=== PATIENT | female | born 1960 | race Caucasian/White ===

== ENCOUNTER 2018-09-28 05:40 | Inpatient (IN) ==
[2018-09-28] MEDS ORDERED: Metoprolol Tartrate 25 MG Tablet PO ONE (06:05)
[2018-09-28] MEDS ORDERED: Chlorhexidine Gluconate 2% 1 Pack (2 Cloths) TOPICAL ONE (06:05)
[2018-09-28] MEDS ORDERED: Protamine Sulfate Inj 50 MG/5 ML Vial ONE (06:27)
[2018-09-28] MEDS ORDERED: Gelatin Size 100 Topical Foam ONE (06:27)
[2018-09-28] MEDS ORDERED: Heparin 10,000 UNITS/10 ML Vial (for IV use) ONE (06:27)
[2018-09-28] MEDS ORDERED: Heparin/NS PF Inj 500 ML ONE (06:28)
[2018-09-28] MEDS ORDERED: Thrombin Topical Soln 20,000 UNIT Vial TOPICAL ONE (06:28)
[2018-09-28] MEDS ORDERED: ceFAZolin 2 GM Premix Inj 2 GM/50 ML PIGGYBACK IV.SIG ONE (06:29)
[2018-09-28] MEDS ORDERED: Sodium Chlor 0.9% Inj 500 ML IV.SIG SCH (07:00)
[2018-09-28] MEDS ORDERED: Lidocaine PF 1% Inj 5 ML Syringe OTHER ONE (07:31)
[2018-09-28] MEDS ORDERED: Sodium Chlor 0.9% Inj 500 ML IV.CONT ONE (07:31)
[2018-09-28] MEDS ORDERED: Normosol-R pH 7.4 Inj 1,000 ML IV.CONT ONE (07:31)
[2018-09-28] MEDS ORDERED: Glycopyrrolate Inj 1 MG/5 ML Syringe IV.PUSH ONE (07:31)
[2018-09-28] MEDS ORDERED: Neostigmine Inj 5 MG/5 ML Syringe IV.PUSH ONE (07:31)
[2018-09-28] MEDS ORDERED: Phenylephrine/NS 1000 MCG/10ML Syringe IV.PUSH ONE (07:31)
[2018-09-28] MEDS ORDERED: Bisacodyl 10 MG Supp RECTAL PRN (09:44)
[2018-09-28] MEDS ORDERED: Enoxaparin Inj 40 MG/0.4 ML Syringe SQ ONE (09:54)
--- NOTE | 2018-09-28 09:59 | P.OP ---
Preoperative Diagnosis: Right lower extremity critical limb ischemia with rest pain Postoperative Diagnosis: Right lower extremity critical limb ischemia with rest pain Date of procedure: 09/28/18 Procedure: 1. Right external iliac artery endarterectomy with pericardial patch angioplasty 2. Right common femoral artery endarterectomy with pericardial patch angioplasty 3. Right superficial femoral artery, profunda femoral artery endarterectomy with pericardial patch angioplasty [facility] Surgeon: Sriram Bhandari MD Estimated blood loss (mL): 20 Operation and Findings: Findings 1. Occlusion of the distal right external iliac artery and right common femoral artery and severely diseased right superficial femoral artery and profunda femoral artery. Performed right external iliac artery, common femoral artery, profunda femoral artery, superficial femoral artery endarterectomy pericardial patch angioplasty. 2. Patient has multiphasic pedal signals at the end of the procedure. Operation details Patient was taken to the operating room, laid supine on the OR table. After adequate sedation, the patient was prepped and draped in the standard sterile fashion. Timeout was called with all members and you are in agreement. A longitudinal incision was made in the right groin. Dissection was taken down through the subcutaneous tissues electrocautery. The distal external iliac artery, common femoral artery, superficial femoral artery, profunda femoral artery dissected and encircled Silastic loop. Patient was heparinized. Arteriotomy was created in the common femoral artery and extended cephalad to the external iliac artery and caudal to the superficial femoral artery. The endarterectomy was performed. The artery was repaired using a pericardial patch was cut at appropriate length and secured using a 6-0 Prolene suture in running fashion. Hemostasis achieved. The wound was closed in multiple layers of Vicryl suture followed by Monocryl suture. Sterile dressing and Brook wound VAC was applied. Patient tolerated the procedure well and was taken to recovery unit in stable condition.
[2018-09-28] MEDS ORDERED: Insulin NovoLOG Aspart Correctional Sugar Inj SQ SCH (10:00)
[2018-09-28] MEDS: Sod Chloride 0.9% Inj 1,000 ML IV.CONT SCH (10:28)
[2018-09-28] MEDS ORDERED: *morphine SULFATE 4 MG/ML PERIprocedure ONLY ONE ×2 (10:31→13:55)
[2018-09-28] MEDS ORDERED: Acyclovir 800 MG Tablet PO SCH (11:30)
[2018-09-28] MEDS ORDERED: Dextrose 50% in Water 50 ML Vial IV.PUSH PRN (11:59)
[2018-09-28] MEDS ORDERED: Gabapentin 300 MG Capsule PO SCH (13:00)
[2018-09-28] MEDS: buPROPion 150 MG XL 24 HR Tablet PO SCH (13:56)
[2018-09-28] MEDS: Docusate Sodium 100 MG Capsule PO SCH ×2 (13:56→18:09)
[2018-09-28] MEDS: Insulin NovoLOG Aspart Correctional Sugar Inj SQ SCH (16:45)
[2018-09-28] MEDS: Gabapentin 300 MG Capsule PO SCH (18:09)
[2018-09-28] MEDS: Calcium Carbonate 500 MG Tablet PO SCH (21:27)
[2018-09-28] MEDS: Famotidine 20 MG Tablet PO SCH (21:28)
[2018-09-28] MEDS: Furosemide 40 MG Tablet PO SCH (21:28)
[2018-09-28] MEDS: Senna/Docusate Sodium 8.6/50 MG Tablet PO SCH (21:28)
[2018-09-29] MEDS: Insulin NovoLOG Aspart Correctional Sugar Inj SQ SCH ×5 (03:17→21:12)
[2018-09-29 05:17] LABS: Hematocrit 41.3 % (35.0-46.0); Mean Corpuscular HGB Conc 33.9 % (32.0-36.0); Mean Corpuscular Hemoglobin 32.3 pg (27.0-34.0); Mean Corpuscular Volume 95.4 fL (80.0-100.0); Mean Platelet Volume 8.9 fL (7.0-11.0); Platelet Count 168 th/mm3 (150-450); Red Blood Count 4.33 mil/mm3 (4.00-5.30); Red Cell Distribution Width 16.1 % (11.6-17.2); White Blood Count 7.1 th/mm3 (4.0-11.0)
[2018-09-29 05:47] LABS: Anion Gap 9 meq/L (5-15); Blood Urea Nitrogen 8 mg/dL (7-18); Calcium 7.3 mg/dL (8.5-10.1); Carbon Dioxide 26.4 meq/L (21.0-32.0); Chloride 107 meq/L (98-107); Glomerular Filtration Rate Greater Than 89 mL/min (>89); Glucose,Random 109 mg/dL (74-106); Potassium 3.4 meq/L (3.5-5.1); Sodium 142 meq/L (136-145)
[2018-09-29 05:54] LABS: Albumin 2.7 g/dL (3.4-5.0); Calcium-Albumin Corrected 8.3 mg/dL (8.5-10.1)
[2018-09-29] MEDS: Sod Chloride 0.9% Inj 1,000 ML IV.CONT SCH ×4 (07:10→19:20)
--- NOTE | 2018-09-29 08:09 | P.PNVS ---
Subjective Subjective/Hospital Course: doing well complain of mild incisional pain Objective Vital Signs / I&O: Vital Signs 09/28/18 10:00 09/28/18 10:15 09/28/18 10:30 Temperature 97.6 F Pulse Rate 85 77 78 Respiratory Rate 20 16 16 Blood Pressure 167/80 H 153/75 H 138/72 Pulse Oximetry 99 99 99 09/28/18 10:45 09/28/18 11:00 09/28/18 11:17 Temperature 98.0 F Pulse Rate 76 74 72 Respiratory Rate 22 20 20 Blood Pressure 133/64 130/62 122/58 L Pulse Oximetry 100 100 100 09/28/18 11:57 09/28/18 12:55 09/28/18 13:58 Temperature Pulse Rate 68 75 80 Respiratory Rate 18 18 18 Blood Pressure 111/56 L 139/60 132/61 Pulse Oximetry 99 97 96 09/28/18 15:00 09/28/18 19:00 09/28/18 20:00 Temperature 97.9 F 98.5 F Pulse Rate 82 72 74 Respiratory Rate 18 18 Blood Pressure 140/63 91/55 L Pulse Oximetry 96 98 09/28/18 23:00 09/29/18 03:00 Temperature 98.9 F 98.7 F Pulse Rate 70 84 Respiratory Rate 18 18 Blood Pressure 123/58 L 155/74 H Pulse Oximetry 98 98 Intake & Output 09/28/18 09/29/18 09/29/18 18:59 06:59 18:59 Intake Total 2400 / 2400 240 / 240 1550 / 1550 Output Total 1750 / 1750 2650 / 2650 Balance 650 / 650 -2410 / -2410 1550 / 1550 Weight 58.7 kg Intake: IV 1550 / 1550 LR 1000 mL Inj 1,000 ML @ 30 1000 / 1000 mls/hr IV.SIG .Q24H [facility] Rx#: [id number] Oral 600 / 600 240 / 240 Anesthesia Amount 1800 / 1800 Output: Estimated Blood Loss 100 / 100 Urine Amount (Catheter) 1650 / 1650 2650 / 2650 Indwelling Urethral Catheter 1650 / 1650 2650 / 2650 Physical Exam: right groin CDI Palpable right DP pulse Laboratory Results - last 24 hr 09/28/18 09/28/18 09/28/18 10:07 14:09 16:10 WBC RBC Hgb Hct MCV MCH MCHC RDW Plt Count MPV Sodium Potassium Chloride Carbon Dioxide Anion Gap BUN Creatinine Estimated GFR POC Glucose 189 H 210 H 218 H Random Glucose Calcium Calcium Adj for Albumin Albumin 09/28/18 09/29/18 09/29/18 21:26 04:56 04:56 WBC 7.1 RBC 4.33 Hgb 14.0 Hct 41.3 MCV 95.4 MCH 32.3 MCHC 33.9 RDW 16.1 Plt Count 168 MPV 8.9 Sodium 142 Potassium 3.4 L Chloride 107 Carbon Dioxide 26.4 Anion Gap 9 BUN 8 Creatinine 0.58 Estimated GFR Greater than 89 POC Glucose 130 H Random Glucose 109 H Calcium 7.3 L* D Calcium Adj for Albumin 8.3 L Albumin 2.7 L 09/29/18 07:31 WBC RBC Hgb Hct MCV MCH MCHC RDW Plt Count MPV Sodium Potassium Chloride Carbon Dioxide Anion Gap BUN Creatinine Estimated GFR POC Glucose 118 H Random Glucose Calcium Calcium Adj for Albumin Albumin Assessment and Plan - Plan S/p femoral endarterectomy POD #1 DC [place] Diet as ethel out of bed with PT HL IVF
[2018-09-29] MEDS ORDERED: TIOTROPIUM INH SCH (09:00)
[2018-09-29] MEDS: Gabapentin 300 MG Capsule PO SCH ×3 (09:10→17:24)
[2018-09-29] MEDS: Docusate Sodium 100 MG Capsule PO SCH ×3 (09:11→17:24)
[2018-09-29] MEDS: Senna/Docusate Sodium 8.6/50 MG Tablet PO SCH ×2 (09:11→21:07)
[2018-09-29] MEDS: Calcium Carbonate 500 MG Tablet PO SCH ×2 (09:11→21:07)
[2018-09-29] MEDS: Famotidine 20 MG Tablet PO SCH ×2 (09:12→21:07)
[2018-09-29] MEDS: Furosemide 40 MG Tablet PO SCH ×2 (09:12→21:07)
[2018-09-29] MEDS: Levothyroxine 125 MCG Tablet PO SCH (09:13)
[2018-09-29] MEDS: buPROPion 150 MG XL 24 HR Tablet PO SCH (09:14)
[2018-09-29] MEDS: Acyclovir 800 MG Tablet PO SCH (09:14)
[2018-09-29] MEDS: Morphine Inj 4 MG/ML Vial IV.PUSH PRN ×3 (10:08→21:07)
[2018-09-30] MEDS: Morphine Inj 4 MG/ML Vial IV.PUSH PRN (03:59)
[2018-09-30] MEDS: Insulin NovoLOG Aspart Correctional Sugar Inj SQ SCH (08:40)
[2018-09-30] MEDS: Calcium Carbonate 500 MG Tablet PO SCH (08:44)
[2018-09-30] MEDS: Gabapentin 300 MG Capsule PO SCH (08:44)
[2018-09-30] MEDS: Furosemide 40 MG Tablet PO SCH (08:44)
[2018-09-30] MEDS: Docusate Sodium 100 MG Capsule PO SCH (08:45)
[2018-09-30] MEDS: Famotidine 20 MG Tablet PO SCH (08:45)
[2018-09-30] MEDS: Levothyroxine 125 MCG Tablet PO SCH (08:45)
[2018-09-30] MEDS: Senna/Docusate Sodium 8.6/50 MG Tablet PO SCH (08:45)
[2018-09-30] MEDS: Acyclovir 800 MG Tablet PO SCH (08:46)
[2018-09-30] MEDS: buPROPion 150 MG XL 24 HR Tablet PO SCH (08:47)
--- NOTE | 2018-09-30 09:09 | P.PNVS ---
Subjective Subjective/Hospital Course: doing well Objective Vital Signs / I&O: Vital Signs 09/29/18 09:09 09/29/18 09:41 09/29/18 10:10 Temperature Pulse Rate 77 Respiratory Rate 18 18 Blood Pressure Pulse Oximetry 09/29/18 11:00 09/29/18 12:00 09/29/18 12:55 Temperature 98.6 F Pulse Rate 75 76 Respiratory Rate 18 18 Blood Pressure 135/65 Pulse Oximetry 98 09/29/18 12:57 09/29/18 14:00 09/29/18 15:00 Temperature 97.7 F Pulse Rate 78 73 82 Respiratory Rate 18 Blood Pressure 155/76 H Pulse Oximetry 99 09/29/18 16:00 09/29/18 17:00 09/29/18 17:14 Temperature Pulse Rate 90 85 Respiratory Rate 18 Blood Pressure Pulse Oximetry 09/29/18 18:25 09/29/18 19:00 09/29/18 20:00 Temperature 98.3 F Pulse Rate 90 86 Respiratory Rate 18 18 Blood Pressure 143/67 H Pulse Oximetry 98 09/29/18 21:00 09/29/18 22:00 09/29/18 22:08 Temperature Pulse Rate 83 84 Respiratory Rate 19 Blood Pressure Pulse Oximetry 09/29/18 23:00 09/30/18 00:00 09/30/18 01:00 Temperature 98.4 F Pulse Rate 81 83 80 Respiratory Rate 17 Blood Pressure 128/64 Pulse Oximetry 99 09/30/18 02:00 09/30/18 03:00 09/30/18 04:00 Temperature 98.5 F Pulse Rate 81 80 80 Respiratory Rate 18 Blood Pressure 147/71 H Pulse Oximetry 98 09/30/18 04:35 09/30/18 05:32 09/30/18 07:00 Temperature 98.3 F Pulse Rate 81 66 92 H Respiratory Rate 18 Blood Pressure 110/59 L Pulse Oximetry 98 Intake & Output 09/29/18 09/30/18 09/30/18 18:59 06:59 18:59 Intake Total 2775 / 2775 1000 / 1000 Balance 2775 / 2775 1000 / 1000 Intake: IV 1550 / 1550 1000 / 1000 NS Inj 1,000 ML @ 100 mls/hr IV 1000 / 1000 .CONT .Q10H [facility] Rx#:[id number] LR 1000 mL Inj 1,000 ML @ 30 1000 / 1000 mls/hr IV.SIG .Q24H [facility] Rx#: [id number] Oral 1225 / 1225 Other: # Voids 6 Date of Last Bowel Movement 09/29/18 # Bowel Movements 0 Physical Exam: Right groin clean dry intact +2 palpable right DP pulse Laboratory Results - last 24 hr 09/29/18 09/29/18 12:08 21:03 POC Glucose 137 H 353 H Assessment and Plan - Plan S/p femoral endarterectomy POD #1 Doing well Ambulating without any difficulties Pain is well controlled We will discharge home today. Follow-up in the office on Thursday for wound VAC removal
--- NOTE | 2018-09-30 09:12 | P.DS ---
Discharge Summary - Admission Date 09/28/18 05:40 - Admission Diagnosis (1) Femoral artery occlusion, right - Discharge Date 09/30/18 - Discharge Diagnosis (1) Femoral artery occlusion, right Status: Acute - Summary Brief History from admission: 58-year-old female who presents with right common femoral artery occlusion after heart catheterization. The patient was admitted to the hospital for right common femoral artery endarterectomy. Procedure: Right common femoral artery endarterectomy Significant Findings: Abnormal Lab Results 09/29/18 09/29/18 12:08 21:03 POC Glucose 137 H 353 H Hospital Course: The patient was taken to the operating room on admission day. The procedure underwent successfully. Postoperatively she was tolerating diet, ambulating, her pain was well controlled. The patient has home health and outpatient PT scheduled. She was discharged home in stable condition. She instructed to follow-up with me in the office on Thursday for wound VAC removal - Discharge Instructions Any questions or concerns: Call [facility] at [facility] [phone] Discharge Plan - Discharge Order Discharge Orders: Discharge Order (Routine); Ordered 09/30/18 Ordered By: Sriram Bhandari - Physicians Team Primary Care Provider: Pedro Milner Attending Provider: Sriram Bhandari - Rxs /Orders / Referrals /Forms Prescriptions: No Action acyclovir 400 mg Tablet 800 mg PO DAILY albuterol sulfate [Proventil HFA] 90 mcg/actuation Hfa Aerosol Inhaler 2 puff INHALATION Q4-6H PRN (Reason: copd) aspirin [Aspir-81] 81 mg Tablet,Delayed Release (Dr/Ec) 81 mg PO DAILY bupropion HCl 150 mg Tablet Extended Release 24 Hr 150 mg PO QAM calcium carbonate [Calcium 600] 600 mg calcium (1,500 mg) Tablet 600 mg PO BID carvedilol 3.125 mg Tablet 0.5 tab PO BID docusate sodium [Stool Softener] 100 mg Capsule 2 tab PO TID doxycycline hyclate 100 mg Capsule 100 mg PO BID duloxetine 30 mg Capsule,Delayed Release(Dr/Ec) 30 mg PO TID ergocalciferol (vitamin D2) [Vitamin D2] 50,000 unit Capsule 50,000 unit PO QWEEK ferrous sulfate [iron] 325 mg (65 mg iron) Tablet 325 mg PO BID furosemide 40 mg Tablet 40 mg PO BID gabapentin 100 mg Capsule 1,500 mg PO TID insulin aspart U-100 [Novolog U-100 Insulin aspart] 100 unit/mL Solution 1 sliding scale dose SUBCUT UD levothyroxine [Synthroid] 125 mcg Tablet 125 mcg PO DAILY morphine 60 mg Capsule, Er Multiphase 24 Hr 60 mg PO BID oxycodone-acetaminophen 10-325 mg Tablet 1 tab PO TID PRN (Reason: Pain) pravastatin 40 mg Tablet 40 mg PO HS Qty: 30 RF: 0 sacubitril-valsartan [Entresto] 24-26 mg Tablet 1 tab PO BID ticagrelor [Brilinta] 90 mg Tablet 90 mg PO BID tiotropium bromide [Spiriva Respimat] 1.25 mcg/actuation Mist 2 puff INHALATION DAILY zolpidem 10 mg Tablet 1 tab PO HS
== END 2018-09-30 10:22 | disposition home or self-care (01) | DRG 271 ==
LOC: HSDI 05:40 → HCPC 16:28
PROVIDERS: ADMIT Surgery; ATTEND Surgery
CPT/HCPCS: 36415; 71020; 71046; 80048; 82040; 82948; 82962; 85027; 86850; 86900; 86901; 93005; 94664; 97110; 97116; 97162; J0690; J1100; J1644; J1650; J1815; J2270; J2370; J2405; J2704; J2710; J2720; J3010; J7030; J7040; J7120

== ENCOUNTER 2018-10-01 16:44 | Inpatient (IN) ==
[2018-10-01] MEDS ORDERED: Sod Chloride 0.9% Inj 1,000 ML IV.SIG ONE (18:18)
--- NOTE | 2018-10-01 18:23 | ED ---
HPI General Chief complaint: Recheck/Abnormal Lab/Rx Stated complaint: low BP complaint Time Seen by Provider: 10/01/18 18:08 Source: patient Mode of arrival: ambulatory Limitations: no limitations History of Present Illness HPI narrative: 58-year-old female with history of IDDM, CAD s/p stent placement 3 weeks ago, presents to the emergency department for evaluation of low blood pressure that has been persistent "all day". Her assist with a history and states that her blood pressure was as low as 58/38 and at that time, patient was groggy and agitated. She states she has not had any medication changes to include blood pressure pain medication. She states she takes oxycodone 10 mg 3 times a day for chronic low back pain and again this is unchanged. She states that she was discharged yesterday after a femoral endarterectomy that was performed for September 28. She denies any complications or excessive pain related to this procedure. She states her blood pressure has been persistently in the 90s systolic all day. Denies fevers, chills, chest pain, shortness of breath, abdominal pain. Denies history of CHF. She has no other complaints today. Related Data Home Medications Medication Instructions Recorded Confirmed aspirin [Aspir-81] 81 mg PO DAILY 08/16/18 10/01/18 calcium carbonate [Calcium 600] 600 mg PO BID 08/16/18 10/01/18 docusate sodium [Stool Softener] 2 tab PO TID 08/16/18 10/01/18 duloxetine 30 mg PO TID 08/16/18 10/01/18 ergocalciferol (vitamin D2) 50,000 unit PO QWEEK 08/16/18 10/01/18 [Vitamin D2] ferrous sulfate [iron] 325 mg PO BID 08/16/18 10/01/18 furosemide 40 mg PO BID 08/16/18 10/01/18 levothyroxine [Synthroid] 125 mcg PO DAILY 08/16/18 10/01/18 morphine 60 mg PO BID 08/16/18 10/01/18 oxycodone-acetaminophen 1 tab PO TID PRN 08/16/18 10/01/18 sacubitril-valsartan [Entresto] 1 tab PO BID 08/16/18 10/01/18 acyclovir 800 mg PO DAILY 09/27/18 10/01/18 albuterol sulfate [Proventil HFA] 2 puff INHALATION Q4-6H PRN 09/27/18 10/01/18 bupropion HCl 150 mg PO QAM 09/27/18 10/01/18 carvedilol 0.5 tab PO BID 09/27/18 10/01/18 doxycycline hyclate 100 mg PO BID 09/27/18 10/01/18 gabapentin 1,500 mg PO TID 09/27/18 10/01/18 ticagrelor [Brilinta] 90 mg PO BID 09/27/18 10/01/18 tiotropium bromide [Spiriva 2 puff INHALATION DAILY 09/27/18 10/01/18 Respimat] zolpidem 1 tab PO HS 09/27/18 10/01/18 Previous Rx's Medication Instructions Recorded pravastatin 40 mg PO HS #30 tab 08/21/18 oxycodone-acetaminophen [Percocet] 1 tab PO Q4HR #40 tab 09/30/18 Allergies Allergy/AdvReac Type Severity Reaction Status Date / Time trazodone Allergy Severe Hives Verified 10/01/18 21:22 Review of Systems ROS: all other systems reviewed are negative [facility] Social History Social History Substance History: No History of Abuse Second Hand Smoke Exposure: Yes Smoking Status: Current every day smoker Tobacco Type: Cigarettes How Often Do You Have a Drink Containing Alcohol: Never Recent Travel in [facility] within the Last 8 Weeks: No Recent Out of Country Travel within the Last 8 Weeks: No Exam Narrative Exam Narrative: GENERAL: WD, WN in NAD SKIN: Focused skin assessment warm/dry. HEAD: Atraumatic. Normocephalic. EYES: Pupils equal and round, 2mm. No scleral icterus. No injection or drainage. ENT: No nasal bleeding or discharge. Mucous membranes pink and moist. No tonsillar hypertrophy or exudate. NECK: Trachea midline. No JVD. No meningismus. No midline tenderness. CARDIOVASCULAR: Regular rate and rhythm. No murmur appreciated. RESPIRATORY: No accessory muscle use. Clear to auscultation. Breath sounds equal bilaterally. GASTROINTESTINAL: Abdomen soft, non-tender, nondistended. No CVAT. right groin- wound dressing in place without surrounding erythema, discharge, or tenderness to palpation. MUSCULOSKELETAL: No obvious deformities. No clubbing. No cyanosis. No edema. No tenderness to palpation of the calves. Sensation intact to bilateral lower extremities. NEUROLOGICAL: Awake and alert. No obvious cranial nerve deficits. Motor grossly within normal limits. Normal speech. PSYCHIATRIC: Appropriate mood and affect; insight and judgment normal. Course Initial Documented Vital Signs Temperature 98.2 F 10/01/18 16:46 Pulse Rate 78 10/01/18 16:46 Respiratory Rate 15 10/01/18 16:46 Blood Pressure 91/53 L 10/01/18 16:46 Pulse Oximetry 98 10/01/18 16:46 Last Documented Vital Signs Temperature 98.2 F 10/01/18 16:46 Pulse Rate 76 10/01/18 19:46 Respiratory Rate 16 10/01/18 19:46 Blood Pressure 126/52 L 10/01/18 19:46 Pulse Oximetry 98 10/01/18 19:46 Medical Decision Making MDM Narrative Medical decision making narrative: 58-year-old female presents to the emergency department for evaluation of low blood pressure that was noted today. She states that she checked her blood pressure because she was feeling groggy and agitated. They report her blood pressure 58/38 at home associated with feeling "drained". She denies fever, chills, chest pain, shortness of breath. She is due to follow-up with her vascular specialist on Thursday for wound check. During the course of the patient's emergency department visit, the patient's history, examination, and differential diagnosis were reviewed with the patient. The patient was placed on a cardiac specialist with oximetry and frequent blood pressure monitoring. The patient had an IV access obtained and blood work sent for analysis. Initial BP with systolic of the 90s. Initiated 1L NS with some improvement of her BP to 119 systolic. Lactic acid level elevated at 2.5. I suspected this is related to her recent surgery and current wound status. Note that her woundvac is patent and without obvious erythema or drainage. I have low suspicion of sepsis or infectious process causing her symptoms. Labs are notable for WBC 6.4, H/H 13.5/40.0, Sodium 131, BUN/Cr 30/1.98, BGL 407 , urinalysis with glucosuria, no evidence of UTI. Troponin <0.02, beta hydroxybutyrate 0.12 EKG shows sinus rhythm rate 76 without STEMI changes. Reviewed previous from . Similar tracing. I had a discussion with the family regarding the findings on today's labs. They were rather insistent upon being discharged home but agreed to stay for further evaluation. I spoke with Dr. Joiner who agreed to the admission. Medical Screen Exam Complete: Yes Emergency Medical Condition: Yes Differential Diagnosis Differential Diagnosis: Symptomatic hypotension, sepsis, medication noncompliance, medication overuse Medical Records Medical records reviewed: Yes I reviewed the patient's medical records. Lab Data Lab results reviewed: Yes I reviewed the patient's lab results. Result diagrams: 10/01/18 18:25 10/01/18 18:25 Lab Results 10/01/18 10/01/18 10/01/18 Range/Units 18:25 18:25 18:25 WBC 6.4 (4.0-11.0) th/mm3 RBC 4.15 (4.00-5.30) mil/mm3 Hgb 13.5 (11.6-15.3) gm/dL Hct 40.0 (35.0-46.0) % MCV 96.4 (80.0-100.0) fL MCH 32.5 (27.0-34.0) pg MCHC 33.7 (32.0-36.0) % RDW 15.8 (11.6-17.2) % Plt Count 180 (150-450) th/mm3 MPV 9.4 (7.0-11.0) fL Neut % (Auto) 67.5 (16.0-70.0) % Lymph % (Auto) 18.1 (9.0-44.0) % [place] % (Auto) 8.4 H (0.0-8.0) % Eos % (Auto) 4.8 H (0.0-4.0) % Baso % (Auto) 1.2 (0.0-2.0) % Neut # (Auto) 4.3 (1.8-7.7) th/mm3 Lymph # (Auto) 1.2 (1.0-4.8) th/mm3 [place] # (Auto) 0.5 (0.0-0.9) th/mm3 Eos # (Auto) 0.3 (0.0-0.4) th/mm3 Baso # (Auto) 0.1 (0.0-0.2) th/mm3 WBC Differential . Differential Comment Auto diff final PT 9.5 L (9.8-11.6) sec INR 0.9 Ratio APTT 23.8 (23.4-31.7) sec Sodium 131 L (136-145) meq/L Potassium 4.1 (3.5-5.1) meq/L Chloride 95 L (98-107) meq/L Carbon Dioxide 27.5 (21.0-32.0) meq/L Anion Gap 9 (5-15) meq/L BUN 30 H (7-18) mg/dL Creatinine 1.98 H (0.50-1.00) mg/dL Estimated GFR 26 L (>89) mL/min Random Glucose 407 H (74-106) mg/dL Lactic Acid (0.4-2.0) mmol/L Calcium 8.6 (8.5-10.1) mg/dL Magnesium 2.3 (1.5-2.5) mg/dL Total Bilirubin 0.5 (0.2-1.0) mg/dL AST 15 (15-37) U/L ALT 11 (10-53) U/L Alkaline Phosphatase 137 H (45-117) U/L Troponin I Less than 0.02 L (0.02-0.05) ng/mL Total Protein 6.5 (6.4-8.2) g/dL Albumin 2.9 L (3.4-5.0) g/dL Beta-Hydroxybutyric Acd (0.00-0.39) mmol/L Urine Color (Yellw/Straw) Urine Clarity (Clear) Urine pH (5.0-8.5) Ur Specific [place] (1.002-1.035) Urine Protein (Neg-Trace) mg/dL Urine Glucose (UA) (Negative) mg/dL Urine Ketones (Negative) mg/dL Urine Occult Blood (Negative) Urine Nitrate (Negative) Urine Bilirubin (Negative) Urine Urobilinogen (Less than 2) mg/dL Ur Leukocyte Esterase (Negative) Urine WBC (0-5) /hpf Ur Squamous Epith Cells (0-5) /hpf Hyaline Casts (0-3) /lpf Urine Yeast (None) /hpf Micro UA Comment Ur Microscopic Review Urine Culture Comments 10/01/18 10/01/18 10/01/18 Range/Units 18:25 18:25 19:38 WBC (4.0-11.0) th/mm3 RBC (4.00-5.30) mil/mm3 Hgb (11.6-15.3) gm/dL Hct (35.0-46.0) % MCV (80.0-100.0) fL MCH (27.0-34.0) pg MCHC (32.0-36.0) % RDW (11.6-17.2) % Plt Count (150-450) th/mm3 MPV (7.0-11.0) fL Neut % (Auto) (16.0-70.0) % Lymph % (Auto) (9.0-44.0) % [place] % (Auto) (0.0-8.0) % Eos % (Auto) (0.0-4.0) % Baso % (Auto) (0.0-2.0) % Neut # (Auto) (1.8-7.7) th/mm3 Lymph # (Auto) (1.0-4.8) th/mm3 [place] # (Auto) (0.0-0.9) th/mm3 Eos # (Auto) (0.0-0.4) th/mm3 Baso # (Auto) (0.0-0.2) th/mm3 WBC Differential Differential Comment PT (9.8-11.6) sec INR Ratio APTT (23.4-31.7) sec Sodium (136-145) meq/L Potassium (3.5-5.1) meq/L Chloride (98-107) meq/L Carbon Dioxide (21.0-32.0) meq/L Anion Gap (5-15) meq/L BUN (7-18) mg/dL Creatinine (0.50-1.00) mg/dL Estimated GFR (>89) mL/min Random Glucose (74-106) mg/dL Lactic Acid 2.5 H (0.4-2.0) mmol/L Calcium (8.5-10.1) mg/dL Magnesium (1.5-2.5) mg/dL Total Bilirubin (0.2-1.0) mg/dL AST (15-37) U/L ALT (10-53) U/L Alkaline Phosphatase (45-117) U/L Troponin I (0.02-0.05) ng/mL Total Protein (6.4-8.2) g/dL Albumin (3.4-5.0) g/dL Beta-Hydroxybutyric Acd 0.12 (0.00-0.39) mmol/L Urine Color Yellow (Yellw/Straw) Urine Clarity Hazy H (Clear) Urine pH 5.0 (5.0-8.5) Ur Specific [place] 1.023 (1.002-1.035) Urine Protein Negative (Neg-Trace) mg/dL Urine Glucose (UA) 500 or greater H (Negative) mg/dL Urine Ketones 20 (Negative) mg/dL Urine Occult Blood Negative (Negative) Urine Nitrate Negative (Negative) Urine Bilirubin Negative (Negative) Urine Urobilinogen Less than 2 (Less than 2) mg/dL Ur Leukocyte Esterase Negative (Negative) Urine WBC 1 (0-5) /hpf Ur Squamous Epith Cells 2 (0-5) /hpf Hyaline Casts 12 (0-3) /lpf Urine Yeast Few H (None) /hpf Micro UA Comment Culture not ind Ur Microscopic Review Not Reportable Urine Culture Comments Culture not ind Imaging Data Radiologist's impression: Chest X-Ray 10/01/18 18:18 CONCLUSION: Mild parenchymal consolidation of both bases. Discharge Plan Discharge Disposition Patient Disposition: ED Admit(ED Internal Use Only) Discharge Condition Condition: Stable Discharge Order Discharge Orders: ED Use Only Admit Order (Routine); Ordered 10/01/18 Ordered By: Bailee Gutierrez Discharge Details Diagnosis: Symptomatic hypotension, JAROD (acute kidney injury), Acute hyperglycemia, Elevated lactic acid level Physicians Team ED Provider: [facility] ED Midlevel Provider: Bailee Gutierrez Primary Care Provider: UNKNOWN, Attending Provider: Tara Joiner Status ED Status: Admitted Patient
[2018-10-01 18:53] LABS: Baso # (Auto) 0.1 th/mm3 (0.0-0.2); Baso % (Auto) 1.2 % (0.0-2.0); Eos # (Auto) 0.3 th/mm3 (0.0-0.4); Eos % (Auto) 4.8 % (0.0-4.0); Hemoglobin 13.5 gm/dL (11.6-15.3); Lymph # (Auto) 1.2 th/mm3 (1.0-4.8); Lymph % (Auto) 18.1 % (9.0-44.0); Mean Corpuscular HGB Conc 33.7 % (32.0-36.0); Mean Corpuscular Hemoglobin 32.5 pg (27.0-34.0); Mean Corpuscular Volume 96.4 fL (80.0-100.0); Mean Platelet Volume 9.4 fL (7.0-11.0); Mono # (Auto) 0.5 th/mm3 (0.0-0.9); Mono % (Auto) 8.4 % (0.0-8.0); Neut # (Auto) 4.3 th/mm3 (1.8-7.7); Neut % (Auto) 67.5 % (16.0-70.0); Platelet Count 180 th/mm3 (150-450); Red Blood Count 4.15 mil/mm3 (4.00-5.30); Red Cell Distribution Width 15.8 % (11.6-17.2); White Blood Count 6.4 th/mm3 (4.0-11.0)
--- NOTE | 2018-10-01 18:59 | XR ---
EXAM DATE: 10/01/2018 6:36 PM EST AGE/SEX: 58 years / Female INDICATIONS: Cardiac disease. Possible low blood pressure. CLINICAL DATA: This is the patient's initial encounter. Patient reports that signs and symptoms have been present for 1 day and indicates a pain score of 0/10. MEDICAL/SURGICAL HISTORY: . Diabetes. . Carotid stent. Back surgery COMPAR[place]: [facility] [place] 2[place]&LAT, 09/27/2018. . FINDINGS: Mild infiltrate again seen of both lung bases, not significantly changed. No pleural effusion demonst rated. No pneumothorax. Heart size stable, within normal limits. Thoracolumbar fusion changes are again noted. CONCLUSION: Mild parenchymal consolidation of both bases. Electronically signed by: Tejinder Hernández MD Board Certified Radiologist 10/01/2018 6:57 PM EST
[2018-10-01 19:01] LABS: Activated Partial Thrombo Time 23.8 sec (23.4-31.7); INR 0.9 Ratio; Prothrombin Time 9.5 sec (9.8-11.6)
[2018-10-01 19:15] LABS: Alanine Aminotransferase 11 U/L (10-53); Albumin 2.9 g/dL (3.4-5.0); Anion Gap 9 meq/L (5-15); Aspartate Aminotransferase 15 U/L (15-37); Blood Urea Nitrogen 30 mg/dL (7-18); Calcium 8.6 mg/dL (8.5-10.1); Carbon Dioxide 27.5 meq/L (21.0-32.0); Chloride 95 meq/L (98-107); Glomerular Filtration Rate 26 mL/min (>89); Glucose,Random 407 mg/dL (74-106); Magnesium 2.3 mg/dL (1.5-2.5); Potassium 4.1 meq/L (3.5-5.1); Sodium 131 meq/L (136-145)
[2018-10-01 19:20] LABS: Alkaline Phosphatase 137 U/L (45-117); Total Protein 6.5 g/dL (6.4-8.2)
[2018-10-01 20:14] LABS: Bilirubin,Urine Negative (Negative); Clarity,Urine Hazy (Clear); Color,Urine Yellow (Yellw/Straw); Glucose,Urine (UA) 500 or Greater mg/dL (Negative); Hyaline Casts,Urine 12 /lpf (0-3); Leukocyte Esterase,Urine Negative (Negative); Nitrite,Urine Negative (Negative); Specific Gravity,Urine 1.023 (1.002-1.035); Squamous Epithelial Cell,Urine 2 /hpf (0-5)
[2018-10-01] MEDS ORDERED: Bisacodyl 10 MG Supp RECTAL PRN (21:13)
[2018-10-01] MEDS ORDERED: Acetaminophen 325 MG Tablet PO PRN (21:13)
[2018-10-01] MEDS ORDERED: Dextrose 50% in Water 50 ML Vial IV.PUSH PRN (21:20)
[2018-10-01] MEDS: Sod Chloride 0.9% Inj 1,000 ML IV.CONT SCH (21:27)
[2018-10-01] MEDS ORDERED: Azithromycin Inj 500 MG in Sodium Chlor 0.9% Inj 250 ML IV.SIG SCH (22:00)
[2018-10-01] MEDS ORDERED: Tiotropium Bromide [Spiriva Respimat] 2 PUFF INH SCH (22:00)
--- NOTE | 2018-10-01 23:12 | P.HPIM ---
History of Present Illness Primary Care Physician: UNKNOWN History of Present Illness: This is a 58-year-old female with PMH of HTN, Hyperlipidemia, PVD, DM, CAD s/p Stent, COPD, Chronic Back Pain and Tobacco Abuse who presented to the ER for hypotension, weakness and fatigue. Recent admit 09/28-09/30/18 for Right Femoral Artery Occlusion s/p right common femoral artery endarterectomy w/ VAC placement. On multiple medications for analgesia. Today noted to have BP in 50's systolic. No LOC. On arrival, BP 91/53, HR 78 , O2 sat 98% on RA, Afebrile. CBC unremarkable. INR 0.9. Creatinine 1.98, previously 0.58 on 09/29/18. Lactic acid 2.5. UA negative for UTI. CXR with parenchymal consolidation bilaterally. Diagnosis (1) Tobacco abuse: (2) JAROD (acute kidney injury): (3) Lactic acidosis: (4) Symptomatic hypotension: (5) Femoral artery occlusion, right: (6) DM (diabetes mellitus): Inpatient Certification Inpatient Certification: I certify that the inpatient services were ordered in accordance with Medicare regulations governing the order. This includes certification that hospital inpatient services are reasonable and necessary and in the case of services not specified as inpatient-only under 42 CFR 419.22(n), that they are appropriately provided as inpatient services in accordance to with the 2-midnight benchmark under 43 CFR 412.3(e) Estimated Total Length of Stay (Days): 2 Plans for Post Hospital Care: Not yet determined Review of Systems PAST FAMILY HISTORY: Reviewed. No h/o DM or CAD Review of Systems: all other systems reviewed are negative [facility] Social History Social History Substance History: No History of Abuse Second Hand Smoke Exposure: Yes Smoking Status: Current every day smoker Tobacco Type: Cigarettes How Often Do You Have a Drink Containing Alcohol: Never Recent Travel in [facility] within the Last 8 Weeks: No Recent Out of Country Travel within the Last 8 Weeks: No Immunization History Tetanus Immunization: Unsure Medications and Allergies Allergies Allergy/AdvReac Type Severity Reaction Status Date / Time trazodone Allergy Severe Hives Verified 10/01/18 21:22 Home Medications Medication Instructions Recorded Confirmed Type aspirin [Aspir-81] 81 mg PO DAILY 08/16/18 10/01/18 History calcium carbonate [Calcium 600] 600 mg PO BID 08/16/18 10/01/18 History docusate sodium [Stool Softener] 2 tab PO TID 08/16/18 10/01/18 History duloxetine 30 mg PO TID 08/16/18 10/01/18 History ergocalciferol (vitamin D2) 50,000 unit PO QWEEK 08/16/18 10/01/18 History [Vitamin D2] ferrous sulfate [iron] 325 mg PO BID 08/16/18 10/01/18 History furosemide 40 mg PO BID 08/16/18 10/01/18 History levothyroxine [Synthroid] 125 mcg PO DAILY 08/16/18 10/01/18 History morphine 60 mg PO BID 08/16/18 10/01/18 History oxycodone-acetaminophen 1 tab PO TID PRN 08/16/18 10/01/18 History sacubitril-valsartan [Entresto] 1 tab PO BID 08/16/18 10/01/18 History acyclovir 800 mg PO DAILY 09/27/18 10/01/18 History albuterol sulfate [Proventil HFA] 2 puff INHALATION Q4-6H PRN 09/27/18 10/01/18 History bupropion HCl 150 mg PO QAM 09/27/18 10/01/18 History carvedilol 0.5 tab PO BID 09/27/18 10/01/18 History doxycycline hyclate 100 mg PO BID 09/27/18 10/01/18 History gabapentin 1,500 mg PO TID 09/27/18 10/01/18 History ticagrelor [Brilinta] 90 mg PO BID 09/27/18 10/01/18 History tiotropium bromide [Spiriva 2 puff INHALATION DAILY 09/27/18 10/01/18 History Respimat] zolpidem 1 tab PO HS 09/27/18 10/01/18 History Active Medications: Active Medications Acetaminophen (Tylenol) 650 mg PO Q4H PRN PRN Reason: Temp > 100.4 Acyclovir (Zovirax) 800 mg PO DAILY [facility] Al Hydroxide/Mg Hydroxide (Milk Of Magnesia Liq) 30 ml PO Q12H PRN PRN Reason: Mild Constipation Albuterol (Duoneb Neb (Prn)) 1 ampul NEB Q4HR NEB PRN PRN Reason: SOB/WHEEZING Aspirin (Ecotrin) 81 mg PO DAILY [facility] Bisacodyl (Dulcolax Supp) 10 mg RECTAL DAILY PRN PRN Reason: SEVERE CONSITIPATION Bupropion HCl (Wellbutrin Sr) 150 mg PO DAILY [facility] Calcium Carbonate (Oscal) 500 mg PO BID [facility] Dextrose (D50w Vial) 50 ml IV.PUSH UNSCH PRN PRN Reason: PER HYPOGLYCEMIA PROTOCOL Duloxetine HCl (Cymbalta) 30 mg PO TID [facility] Glucagon (Glucagon Inj) 1 mg OTHER PRN PRN PRN Reason: for Hypoglycemia Protocol Azithromycin 500 mg/ Sodium (Chloride) 250 mls @ 250 mls/hr IV.SIG Q24H [facility] Last Admin: 10/01/18 22:35 Dose: 250 mls/hr Ceftriaxone Sodium 1,000 mg/ (Sodium Chloride) 100 mls @ 200 mls/hr IV.SIG Q24H [facility] Last Infusion: 10/01/18 22:51 Dose: Infused Sodium Chloride (Ns Inj) 1,000 mls @ 100 mls/hr IV.CONT .Q10H [facility] Last Admin: 10/01/18 21:27 Dose: 100 mls/hr Lactulose (Lactulose Liq) 30 ml PO DAILY PRN PRN Reason: SEVERE CONSITIPATION Levothyroxine Sodium (Synthroid) 125 mcg PO DAILY@0600 [facility] Ondansetron HCl (Zofran Inj) 4 mg IV.PUSH Q6H PRN PRN Reason: NAUSEA OR VOMITING Tiotropium [place] [ Spiriva Respimat] 2 Puff 0 each INH DAILY [facility] Pravastatin Sodium (Pravachol) 40 mg PO HS [facility] Senna/Docusate Sodium (Tammy-Colace) 1 tab PO BID [facility] Sennosides (Senokot) 17.2 mg PO Q12H PRN PRN Reason: Moderate Constipation Sodium Chloride (Ns Flush) 2 ml IV.FLUSH BID [facility] Sodium Chloride (Ns Flush) 2 ml IV.FLUSH PRN PRN PRN Reason: FLUSH AFTER USING IV ACCESS Ticagrelor (Brilinta) 90 mg PO BID [facility] Physical Exam Vital signs: Vital Signs 10/01/18 16:46 10/01/18 18:38 10/01/18 18:39 Temperature 98.2 F Pulse Rate 78 70 Respiratory Rate 15 17 Blood Pressure 91/53 L 106/53 L Pulse Oximetry 98 98 98 10/01/18 19:29 10/01/18 19:46 10/01/18 21:30 Temperature Pulse Rate 67 76 72 Respiratory Rate 16 16 16 Blood Pressure 102/54 L 126/52 L 119/71 Pulse Oximetry 98 98 Intake & Output 10/01/18 10/01/18 10/02/18 06:59 18:59 06:59 Intake Total 1100 / 1100 Balance 1100 / 1100 Weight 58.967 kg Intake: IV 1100 / 1100 NS Inj 1,000 ML @ Wide Open IV. 1000 / 1000 [facility] Rx#:[id number] Rocephin Inj 1,000 MG In NS Inj 100 / 100 100 ML @ 200 mls/hr IV.SIG Q24H [facility] Rx#:[id number] Other: # Urine Diapers 2 Narrative: PE: GENERAL: Pleasant middle aged female in no acute distress. at bedside SKIN: Focused skin assessment warm and dry. HEENT: PERRLA, EOMI. No scleral icterus or conjunctival pallor. No lid lag or facial droop. CARDIOVASCULAR: Regular rate and rhythm. No obvious murmurs to auscultation. No chest tenderness to palpation. RESPIRATORY: No obvious rhonchi or wheezing. Clear to auscultation. Breath sounds equal bilaterally. GASTROINTESTINAL: Abdomen soft, non-tender, nondistended. BS normal. MUSCULOSKELETAL: Extremities without clubbing, cyanosis, or edema. No obvious deformities. Right groin wound VAC in place. NEUROLOGICAL: Awake, alert and oriented x4. No focal neurologic deficits. Moving both upper and lower extremities spontaneously. PSYCHIATRIC: Appropriate mood and affect. Insight and judgment normal. Results Labs CBC & Chem 7: 10/01/18 18:25 10/01/18 18:25 Imaging Impressions Chest X-Ray 10/01/18 18:18 CONCLUSION: Mild parenchymal consolidation of both bases. Caprini VTE Risk Assessment Caprini VTE Risk Assessment: No/Low Risk (score <= 1) Caprini Risk Assessment Model: Point Value = 1 Point Value = 2 Point Value = 3 Point Value = 5 Age 41-60 Minor surgery BMI > 25 kg/m2 Swollen legs Varicose veins or History of unexplained or recurrent spontaneous Oral contraceptives or hormone replacement Sepsis (< 1 month) Serious lung disease, including pneumonia (< 1 month) Abnormal pulmonary function Acute myocardial infarction Congestive heart failure (< 1 month) History of inflammatory bowel disease Medical patient at bed rest Age 61-74 Arthroscopic surgery Major open surgery (> 45 min) Laparoscopic surgery (> 45 min) Malignancy Confined to bed (> 72 hours) Immobilizing plaster cast Central venous access Age >= 75 History of VTE Family history of VTE Factor V Leiden Prothrombin [id number] Lupus anticoagulant Anticardiolipin antibodies Elevated serum homocysteine Heparin-induced thrombocytopenia Other congenital or acquired thrombophilia Stroke (< 1 month) Elective arthroplasty Hip, pelvis, or leg fracture Acute spinal cord injury (< 1 month) Prophylaxis Regimen: Total Risk Factor Score Risk Level Prophylaxis Regimen 0-1 Low Early ambulation 2 Moderate Order ONE of the following: *Sequential Compression Device (SCD) *Heparin 5000 units SQ BID 3-4 Higher Order ONE of the following medications: *Heparin 5000 units SQ TID *Enoxaparin/Lovenox 40 mg SQ daily (WT < 150 kg, CrCl > 30 mL/min) *Enoxaparin/Lovenox 30 mg SQ daily (WT < 150 kg, CrCl > 10-29 mL/min) *Enoxaparin/Lovenox 30 mg SQ BID (WT < 150 kg, CrCl > 30 mL/min) AND/OR *Sequential Compression Device (SCD) 5 or more Highest Order ONE of the following medications: *Heparin 5000 units SQ TID (Preferred with Epidurals) *Enoxaparin/Lovenox 40 mg SQ daily (WT < 150 kg, CrCl > 30 mL/min) *Enoxaparin/Lovenox 30 mg SQ daily (WT < 150 kg, CrCl > 10-29 mL/min) *Enoxaparin/Lovenox 30 mg SQ BID (WT < 150 kg, CrCl > 30 mL/min) AND *Sequential Compression Device (SCD) Assessment and Plan (1) Tobacco abuse: Code(s): Z72.0 - Tobacco use Status: Acute (2) JAROD (acute kidney injury): Code(s): N17.9 - Acute kidney failure, unspecified Status: Acute (3) Lactic acidosis: Code(s): E87.2 - Acidosis Status: Acute (4) Symptomatic hypotension: Code(s): I95.89 - Other hypotension Status: Acute (5) Femoral artery occlusion, right: Code(s): I70.201 - Unspecified atherosclerosis of [place] arteries of extremities, right leg Status: Acute (6) DM (diabetes mellitus): Code(s): E11.9 - Type 2 diabetes mellitus without complications Status: Acute Plan A/P: 1. Hypotension: Symptomatic, BP 50's systolic, likely combination of dehydration and opioid medications, IVF for hydration, monitor BP, hold antihypertensives. 2. JAROD: Creatinine 1.98, previously 0.98 on 09/27/2018, IVF for hydration, monitor I/O, repeat labs in a.m. 3. Lactic Acidosis: Likely secondary to dehydration, no obvious sepsis. Lactic Acid 2.5, IVF for hydration, repeat Lactic Acid for trend. 4. PNA: CXR with bilateral basilar consolidations, start IV Abx, DuoNeb as needed 5. DM: Sliding scale with Accu-Cheks. 6. Right Femoral Artery Occlusion: s/p Right Femoral Artery Endarterectomy by Dr. Bhandari, wound VAC in place, consult Wound Management. 7. Tobacco Abuse: Ongoing, pt counselled, NicoDerm prn if needed. 8. DVT Prophylaxis: SCD/teds. 9. Social for DC planning as needed. 10. Case discussed at length with the ER physician, labs/records/imaging reviewed by me.
[2018-10-02 05:05] LABS: Baso # (Auto) 0.1 th/mm3 (0.0-0.2); Baso % (Auto) 1.2 % (0.0-2.0); Eos # (Auto) 0.3 th/mm3 (0.0-0.4); Eos % (Auto) 3.7 % (0.0-4.0); Hematocrit 38.7 % (35.0-46.0); Hemoglobin 12.8 gm/dL (11.6-15.3); Lymph % (Auto) 14.5 % (9.0-44.0); Mean Corpuscular HGB Conc 33.1 % (32.0-36.0); Mean Corpuscular Hemoglobin 32.5 pg (27.0-34.0); Mean Corpuscular Volume 98.2 fL (80.0-100.0); Mean Platelet Volume 9.7 fL (7.0-11.0); Mono # (Auto) 0.6 th/mm3 (0.0-0.9); Mono % (Auto) 8.3 % (0.0-8.0); Neut % (Auto) 72.3 % (16.0-70.0); Platelet Count 147 th/mm3 (150-450); Red Blood Count 3.94 mil/mm3 (4.00-5.30); Red Cell Distribution Width 16.3 % (11.6-17.2); White Blood Count 6.9 th/mm3 (4.0-11.0)
[2018-10-02 05:07] LABS: Albumin 2.5 g/dL (3.4-5.0); Anion Gap 12 meq/L (5-15); Aspartate Aminotransferase 13 U/L (15-37); Blood Urea Nitrogen 24 mg/dL (7-18); Calcium 8.1 mg/dL (8.5-10.1); Carbon Dioxide 22.3 meq/L (21.0-32.0); Chloride 101 meq/L (98-107); Glomerular Filtration Rate 45 mL/min (>89); Potassium 4.2 meq/L (3.5-5.1); Sodium 135 meq/L (136-145)
[2018-10-02 05:09] LABS: Alanine Aminotransferase 10 U/L (10-53)
[2018-10-02 05:49] LABS: Alkaline Phosphatase 129 U/L (45-117); Total Protein 5.8 g/dL (6.4-8.2)
[2018-10-02 06:04] LABS: Glucose,Random 468 mg/dL (74-106)
[2018-10-02] MEDS: Levothyroxine 125 MCG Tablet PO SCH (06:29)
[2018-10-02] MEDS ORDERED: Insulin NovoLOG Aspart Correctional Sugar Inj SQ SCH (08:00)
[2018-10-02] MEDS: Acyclovir 200 MG Capsule PO SCH (08:25)
[2018-10-02] MEDS: Calcium Carbonate 500 MG Tablet PO SCH ×2 (08:25→20:28)
[2018-10-02] MEDS: buPROPion 150 MG 12 HR Tablet PO SCH (08:25)
[2018-10-02] MEDS: Senna/Docusate Sodium 8.6/50 MG Tablet PO SCH ×2 (08:25→20:29)
[2018-10-02] MEDS ORDERED: Dextrose 50% in Water 50 ML Vial IV.PUSH PRN (08:51)
[2018-10-02] MEDS: Sod Chloride 0.9% Inj 1,000 ML IV.CONT SCH ×2 (08:52→17:26)
[2018-10-02] MEDS ORDERED: Insulin Detemir Inj 1,000 UNIT/10 ML Vial SQ SCH ×2 (09:30→21:00)
[2018-10-02] MEDS: Insulin NovoLOG Aspart Correctional Sugar Inj SQ SCH ×3 (12:26→21:43)
--- NOTE | 2018-10-02 13:29 | P.PNIM ---
Subjective Interval history: Follow-up on patient with hypertension, fatigue, recent right femoral endarterectomy with wound VAC placement. Patient seen and examined. Patient says she is very frustrated. She is asking if she can go home. She does not think that she has pneumonia. She denies any recent illness at home or associated symptoms including fever, chills, cough, sputum production, chest pain or shortness of breath. Patient's blood sugars have been in the 600s today. Patient has an insulin pump she uses at home. Patient says that she was recently seen by her appointment scheduler Dr. Fang and believes that may have been when she was started on Entresto however patient does not know the names of any of the medication she is on at home or when they were started. Patient takes 1500mg of Gabapentin TID at home. None of her pain medications, gabapentin or Ambien have been resumed. Physical Exam Vital signs: Vital Signs 10/01/18 16:46 10/01/18 18:38 10/01/18 18:39 Temperature 98.2 F Pulse Rate 78 70 Respiratory Rate 15 17 Blood Pressure 91/53 L 106/53 L Pulse Oximetry 98 98 98 10/01/18 19:29 10/01/18 19:46 10/01/18 21:30 Temperature Pulse Rate 67 76 72 Respiratory Rate 16 16 16 Blood Pressure 102/54 L 126/52 L 119/71 Pulse Oximetry 98 98 10/01/18 23:22 10/02/18 03:28 10/02/18 08:00 Temperature 97.1 F L 98.0 F Pulse Rate 73 77 Respiratory Rate 17 17 16 Blood Pressure 121/58 L 135/68 Pulse Oximetry 94 L 97 10/02/18 08:06 Temperature 98.4 F Pulse Rate 92 H Respiratory Rate 16 Blood Pressure 93/52 L Pulse Oximetry 95 Intake & Output 10/01/18 10/02/18 10/02/18 18:59 06:59 18:59 Intake Total 1350 / 1350 1000 / 1000 Balance 1350 / 1350 1000 / 1000 Weight 58.967 kg 60.3 kg Intake: IV 1350 / 1350 1000 / 1000 NS Inj 1,000 ML @ 100 mls/hr IV 1000 / 1000 .CONT .Q10H [facility] Rx#:[id number] Azithromycin Inj 500 MG In NS 250 / 250 Inj 250 ML @ 250 mls/hr IV.SIG Q24H [facility] Rx#:[id number] NS Inj 1,000 ML @ Wide Open IV. 1000 / 1000 SIG BOLUS ONE Rx#:[id number] Rocephin Inj 1,000 MG In NS Inj 100 / 100 100 ML @ 200 mls/hr IV.SIG Q24H [facility] Rx#:[id number] Other: # Voids 3 # Urine Diapers 2 Weight On Admission 59 kg Narrative: GENERAL: WDWN female patient, INAD. Awake and alert. SKIN: Warm and dry. HEENT: Atraumatic. Pupils equal and round. No scleral icterus. No nasal discharge. Mucous membranes pink and moist. NECK: Trachea midline. CARDIOVASCULAR: Regular rate and rhythm. RESPIRATORY: No accessory muscle use. Clear to auscultation. Breath sounds equal bilaterally. GASTROINTESTINAL: Abdomen soft, non-tender, nondistended. +BS. MUSCULOSKELETAL: Extremities without clubbing, cyanosis, or edema. +right groin wound vac in place. NEUROLOGICAL: Awake and alert. No obvious cranial nerve deficits. Able to move all extremities spontaneously. Normal speech. PSYCHIATRIC: Irritable mood. Results Labs CBC & Chem 7: 10/02/18 03:50 10/02/18 09:50 Labs: Microbiology 10/01/18 18:25 Blood - Peripheral Aerobic Blood Culture - Preliminary No growth in 1 day 10/01/18 18:25 Blood - Peripheral Anaerobic Blood Culture - Preliminary No growth in 1 day 10/01/18 18:30 Blood - Peripheral Aerobic Blood Culture - Preliminary No growth in 1 day 10/01/18 18:30 Blood - Peripheral Anaerobic Blood Culture - Preliminary No growth in 1 day Imaging Imaging: Impressions Chest X-Ray 10/01/18 18:18 CONCLUSION: Mild parenchymal consolidation of both bases. Assessment and Plan (1) Tobacco abuse: Code(s): Z72.0 - Tobacco use Status: Acute (2) JAROD (acute kidney injury): Code(s): N17.9 - Acute kidney failure, unspecified Status: Acute (3) Lactic acidosis: Code(s): E87.2 - Acidosis Status: Acute (4) Symptomatic hypotension: Code(s): I95.89 - Other hypotension Status: Acute (5) Femoral artery occlusion, right: Code(s): I70.201 - Unspecified atherosclerosis of [place] arteries of extremities, right leg Status: Acute (6) DM (diabetes mellitus): Code(s): E11.9 - Type 2 diabetes mellitus without complications Status: Acute Plan 58-year-old female with PMH of HTN, Hyperlipidemia, PVD, DM, CAD s/p Stent, COPD , Chronic Back Pain and Tobacco Abuse who presented to the ER for hypotension, weakness and fatigue found to have SBP in the 50s. Hypotension: Symptomatic, BP 50's systolic, likely combination of dehydration, newly started BP meds, opioid medications and high doses of gabapentin -IVF for hydration -BP improved, now 141/65 -resume home dose of Entresto and Gabapentin. Continue to hold all narcotics, gabapentin and Lasix. -continue to monitor BP and adjust tx accordingly Lactic Acidosis: Likely secondary to dehydration, no obvious sepsis. -Lactic Acid 2.5, repeat 2.0 s/p IVF hydration Concern for PNA: Suspected underlying COPD CXR with mild parenchymal consolidation of both bases, not significantly changed -clinically no e/o PNA. DW Dr. Zapata. Will discontinue IV antibiotics and monitor. -continue on home dose of Spiriva -DuoNeb as needed -IS, encourage use -monitor clinically JAROD creatinine 1.98, previous Cr 0.58 -creatinine trending down, on IVF -avoid nephrotoxic agents -continue to hold Entresto -continue to monitor renal indices CAD: s/p NSTEMI s/p KATHY to RCA 08/21/18 patient denies any cardiac complaints -patient on Entresto and Coreg at home, BP improved, will resume -continue on home dose of Brilinta and ASA -monitor DM, uncontrolled: BS 572 this am patient has her on insulin pump, uses for boluses only, discussed with patient and at bedside, will turn pump off for now -10u Novolin R now -Given 5u Levemir this am. Start on Levemir 15u at night and Aspart 5u TIDAC. -accucheck and medium ISS -obtain HgbA1c -monitor BS closely Right Femoral Artery Occlusion: Recent admit 09/28-09/30/18 for Right Femoral Artery Occlusion s/p right common femoral artery endarterectomy w/ VAC placement. -wound vac in place, per Dr. Bhandari's note patient to follow-up in his office this Thursday for VAC removal -Wound management consulted Tobacco Abuse: Ongoing -pt counselled - Approximately 15 minutes was spent counseling the patient is cessation techniques. Understands continuing to smoke could lead to stroke and , worsening of COPD. Benefits of stopping also presented to the patient. Patient verbalized desire to "give it a try" regarding smoking cessation and its benefits. -NicoDerm prn if needed. Chronic back pain Neuropathy -narcotics, ambien and gabapentin held due to low BP. DW patient and , current Gabapentin dose way over the maximum recommend dosage to 3600mg. -Patient appears comfortable off narcotics and gabapentin at present DVT Prophylaxis: SCD/teds. Code Status: Full Discussed Condition With: patient, , nursing staff, Dr. Zapata Discharge Planning: Possible discharge in am if clinically improved Progress Note: Quality VTE Deep Vein Thrombosis/Pulmonary Embolism Present on Admission: No
[2018-10-02 13:50] LABS: Hemoglobin A1c 9.7 % (4.3-6.0)
[2018-10-02] MEDS ORDERED: Gabapentin 300 MG Capsule PO ONE (20:56)
[2018-10-03] MEDS: Sod Chloride 0.9% Inj 1,000 ML IV.CONT SCH (03:00)
[2018-10-03] MEDS: Levothyroxine 125 MCG Tablet PO SCH (06:22)
[2018-10-03 07:00] LABS: Anion Gap 11 meq/L (5-15); Blood Urea Nitrogen 12 mg/dL (7-18); Calcium 8.3 mg/dL (8.5-10.1); Carbon Dioxide 23.1 meq/L (21.0-32.0); Chloride 104 meq/L (98-107); Glomerular Filtration Rate Greater Than 89 mL/min (>89); Glucose,Random 221 mg/dL (74-106); Potassium 3.6 meq/L (3.5-5.1); Sodium 138 meq/L (136-145)
[2018-10-03 07:15] LABS: Phosphorus 2.2 mg/dL (2.5-4.9)
--- NOTE | 2018-10-03 07:46 | P.DS ---
DS: Providers Date of admission: 10/01/18 20:59 Primary care physician: UNKNOWN Attending physician on discharge: Graciela Zapata Anticipated date of discharge: 10/03/18 Brief History from admission: This is a 58-year-old female with PMH of HTN, Hyperlipidemia, PVD, DM, CAD s/p Stent, COPD, Chronic Back Pain and Tobacco Abuse who presented to the ER for hypotension, weakness and fatigue. Recent admit 09/28-09/30/18 for Right Femoral Artery Occlusion s/p right common femoral artery endarterectomy w/ VAC placement. On multiple medications for analgesia. Today noted to have BP in 50's systolic. No LOC. On arrival, BP 91/53, HR 78 , O2 sat 98% on RA, Afebrile. CBC unremarkable. INR 0.9. Creatinine 1.98, previously 0.58 on 09/29/18. Lactic acid 2.5. UA negative for UTI. CXR with parenchymal consolidation bilaterally. Patient update on day of discharge: Patient seen and examined. Patient's blood pressure is much improved. Patient does not voice any acute medical complaints or concerns. She denies any fever chills. Denies any cough, chest pain or shortness of breath. She denies any nausea, vomiting or abdominal pain. DS: Diagnosis Discharge Diagnosis (1) Tobacco abuse: Status: Acute (2) JAROD (acute kidney injury): Status: Acute (3) Lactic acidosis: Status: Acute (4) Symptomatic hypotension: Status: Acute (5) DM (diabetes mellitus): Status: Acute (6) Renal insufficiency: Status: Acute (7) Acute hyperglycemia: Status: Acute DS: Summary Patient admitted with symptomatic hypotension with systolic in the 50s felt likely to be due to combination of dehydration, antihypertensives and opioid medications. Patient was started on IV fluids. She was noted to have acute renal insufficiency with a creatinine of 1.98. She was also started on IV antibiotics for concern for possible pneumonia however further review of imaging which appeared unchanged from previous studies as well as no significant clinical findings consistent with active pneumonia infection antibiotics were discontinued. All of patient's antihypertensives were held as well as her narcotic medications and gabapentin. Patient was noted to be far above the recommended max dosage for gabapentin taking 1500 mg 3 times a day. Patient with significant cardiac history having recent NSTEMI with KATHY to RCA . Patient with a history of diabetes with insulin pump for bolus insulin administration only. Patient's blood sugars were uncontrolled with blood glucose of 572. Patient's insulin pump was turned off and we managed her insulin regimen with significant improvement in her blood sugars. Patient's blood pressure improved. She was resumed back on her cardiac medications. Her kidney function improved. Patient reached maximal benefit of her hospitalization. Patient also had right common femoral artery endarterectomy w / VAC placement by Dr. Bhandari with scheduled follow up appointment in his office on Thursday. Patient was instructed to discontinue use of gabapentin as well as her long-acting morphine. She was given a trial prescription for Lyrica. She was instructed to keep close follow-up with her primary care physician for ongoing management of her diabetes. Time spent discussing smoking cessation with patient: more than 10 minutes Time Spent with Patient Total time spent providing and/or coordinating discharge services: Greater than 30 minutes Quality: VTE Deep Vein Thrombosis/Pulmonary Embolism Present on Admission: No Exam Narrative Exam Narrative: GENERAL: WDWN female patient, INAD. Awake and alert. Appears comfortable. SKIN: Warm and dry. HEENT: Atraumatic. Pupils equal and round. No scleral icterus. No nasal discharge. Mucous membranes pink and moist. NECK: Trachea midline. CARDIOVASCULAR: Regular rate and rhythm. RESPIRATORY: No accessory muscle use. Clear to auscultation. Breath sounds equal bilaterally. GASTROINTESTINAL: Abdomen soft, non-tender, nondistended. +BS. MUSCULOSKELETAL: Extremities without clubbing, cyanosis, or edema. +right groin wound vac in place. NEUROLOGICAL: Awake and alert. No obvious cranial nerve deficits. Able to move all extremities spontaneously. Normal speech. PSYCHIATRIC: Calm and cooperative. Results Labs on day of discharge: Labs from last 24 hours 10/03/18 10/03/18 10/03/18 04:22 04:22 03:02 Sodium 138 Potassium 3.6 Chloride 104 Carbon Dioxide 23.1 Anion Gap 11 BUN 12 Creatinine 0.61 Estimated GFR Greater than 89 POC Glucose 238 H Random Glucose 221 H D Hemoglobin A1c Calcium 8.3 L Phosphorus 2.2 L Magnesium 2.0 10/02/18 10/02/18 10/02/18 21:35 16:31 12:22 Sodium Potassium Chloride Carbon Dioxide Anion Gap BUN Creatinine Estimated GFR POC Glucose 99 171 H 487 H* Random Glucose Hemoglobin A1c Calcium Phosphorus Magnesium 10/02/18 10/02/18 10/02/18 11:35 09:50 08:09 Sodium Potassium Chloride Carbon Dioxide Anion Gap BUN Creatinine Estimated GFR POC Glucose 572 H* Random Glucose 638 H* D Hemoglobin A1c 9.7 H Calcium Phosphorus Magnesium Preliminary micro results at discharge 10/01/18 18:25 Aerobic Blood Culture - Preliminary Blood - Peripheral No growth in 1 day Anaerobic Blood Culture - Preliminary No growth in 1 day 10/01/18 18:30 Aerobic Blood Culture - Preliminary Blood - Peripheral No growth in 1 day Anaerobic Blood Culture - Preliminary No growth in 1 day Impressions ITS Impressions Chest X-Ray 10/01/18 18:18 CONCLUSION: Mild parenchymal consolidation of both bases. Discharge Plan Discharge Disposition Patient Disposition: Discharge Home Discharge Condition Condition: Stable Discharge Order Discharge Orders: Discharge Order (Routine); Ordered 10/03/18 Ordered By: Opal Bains Discharge Details Anticipated Discharge Date: 10/03/18 Physicians Team ED Provider: [facility] Midlevel Provider: Bailee Gutierrez Primary Care Provider: UNKNOWN, Attending Provider: Graciela Zapata Rxs /Orders / Referrals /Forms Prescriptions: New furosemide [Lasix] 20 mg tablet 20 mg PO BID Qty: 60 RF: 0 pregabalin [Lyrica] 75 mg capsule 75 mg PO BID Qty: 60 RF: 0 sod phos di, mono-K phos mono [L-Bdud-Pzxppzc] 250 mg tablet 1 tab PO TID Qty: 6 RF: 0 Continue levothyroxine [Synthroid] 125 mcg Tablet 125 mcg PO DAILY RF: 0 ergocalciferol (vitamin D2) [Vitamin D2] 50,000 unit Capsule 50,000 unit PO QWEEK RF: 0 duloxetine 30 mg Capsule,Delayed Release(Dr/Ec) 30 mg PO TID RF: 0 sacubitril-valsartan [Entresto] 24-26 mg Tablet 1 tab PO BID RF: 0 calcium carbonate [Calcium 600] 600 mg calcium (1,500 mg) Tablet 600 mg PO BID RF: 0 oxycodone-acetaminophen 10-325 mg Tablet 1 tab PO TID PRN (Reason: Pain) RF: 0 aspirin [Aspir-81] 81 mg Tablet,Delayed Release (Dr/Ec) 81 mg PO DAILY RF: 0 ferrous sulfate [iron] 325 mg (65 mg iron) Tablet 325 mg PO BID RF: 0 docusate sodium [Stool Softener] 100 mg Capsule 2 tab PO TID RF: 0 pravastatin 40 mg Tablet 40 mg PO HS Qty: 30 RF: 0 acyclovir 400 mg Tablet 800 mg PO DAILY RF: 0 carvedilol 3.125 mg Tablet 0.5 tab PO BID RF: 0 zolpidem 10 mg Tablet 1 tab PO HS RF: 0 albuterol sulfate [Proventil HFA] 90 mcg/actuation Hfa Aerosol Inhaler 2 puff INHALATION Q4-6H PRN (Reason: copd) RF: 0 bupropion HCl 150 mg Tablet Extended Release 24 Hr 150 mg PO QAM RF: 0 ticagrelor [Brilinta] 90 mg Tablet 90 mg PO BID RF: 0 tiotropium bromide [Spiriva Respimat] 1.25 mcg/actuation Mist 2 puff INHALATION DAILY RF: 0 oxycodone-acetaminophen [Percocet] 5-325 mg Tablet 1 tab PO Q4HR Qty: 40 RF: 0 Discontinued furosemide 40 mg Tablet 40 mg PO BID RF: 0 morphine 60 mg Capsule, Er Multiphase 24 Hr 60 mg PO BID RF: 0 doxycycline hyclate 100 mg Capsule 100 mg PO BID RF: 0 gabapentin 100 mg Capsule 1,500 mg PO TID RF: 0 Ambulatory Orders / Order Sets / DME: Hemoglobin A1C (Routine) Timeframe: 3 Months Location: Determined by Patient Ordered By: Opal Bains Referrals: Primary Care Provider [Outside] - See Instructions ( Please call the physician's office to book the appointment to be seen within one week.) Alexandru Malagon MD [Physician] - See Instructions ( Please call the physician's office to book the appointment to be seen within one week.) Sriram Bhandari MD [Physician] - See Instructions ( Please keep your previously scheduled appointment) UNKNOWN, [Primary Care Provider] - See Instructions Discharge Instructions Patient Printed Instructions: Furosemide (By mouth), Pregabalin (By mouth), Acute Kidney Injury (DC), Hypotension (DC), Fall Prevention (DC), Lactic Acidosis (GEN) Additional Instructions: Follow up as directed Prescriptions given at time of discharge Post Discharge Care Plan Care Plan Goals: Your Health Problems: Hypotension Acute kidney injury Poorly controlled diabetes Goals to Promote Your Health: * To prevent worsening of your condition * To maintain your health at the optimal level Directions to Meet Your Goals: * Take your medications as prescribed * Follow your dietary instruction * Follow activity as directed * Keep your appointments as scheduled * Take your immunizations and boosters as scheduled * If your symptoms worsen call your PCP * If no PCP go to Urgent Care or Emergency Room Smoking is dangerous to your health. Avoid second hand smoke. You may reach the 24-hour crisis hotline for domestic abuse at . Status ED Status: Left Department Discharge Information Discharge Date/Time: 10/03/18 11:15
[2018-10-03] MEDS: Insulin NovoLOG Aspart Correctional Sugar Inj SQ SCH (08:06)
[2018-10-03 09:24] VITALS: PULSE 78; RESP 20; TEMP 98; O2SAT 100
[2018-10-03 09:48] VITALS: BP 150/71
[2018-10-03] MEDS: buPROPion 150 MG 12 HR Tablet PO SCH (10:07)
[2018-10-03] MEDS: Senna/Docusate Sodium 8.6/50 MG Tablet PO SCH (10:07)
[2018-10-03] MEDS: Calcium Carbonate 500 MG Tablet PO SCH (10:07)
[2018-10-03] MEDS: Acyclovir 200 MG Capsule PO SCH (10:07)
--- NOTE | 2018-10-03 23:13 | ECG ---
Date Performed: 10/01/2018 Time Performed: 20:44:37 PTAGE: 58 years EKG: Sinus rhythm POSSIBLE ANTERIOR MYOCARDIAL INFARCTION ABNORMAL ECG PREVIOUS TRACING : 09/27/2018 10.49 Since the previous tracing, no significant change noted DOCTOR: Shane Phillips Interpretating Date/Time 10/03/2018 23:12:49
== END 2018-10-03 11:15 | disposition home or self-care (01) | DRG 315 ==
LOC: NEPD 16:44 → NEDA 20:59 → N06 22:46
PROVIDERS: ADMIT Hospitalist; ATTEND Hospitalist
DX: F17.210 Nicotine dependence, cigarettes, uncomplicated; N17.9 Acute kidney failure, unspecified; G89.29 Other chronic pain; E78.5 Hyperlipidemia, unspecified; E86.0 Dehydration; M54.5 Low back pain; J44.9 Chronic obstructive pulmonary disease, unspecified; T46.5X5A Adverse effect of other antihypertensive drugs, initial encounter; T40.2X5A Adverse effect of other opioids, initial encounter; E11.40 Type 2 diabetes mellitus with diabetic neuropathy, unspecified; I95.9 Hypotension, unspecified; I25.10 Atherosclerotic heart disease of native coronary artery without angina pectoris; E87.2 Acidosis; Z95.5 Presence of coronary angioplasty implant and graft; E11.65 Type 2 diabetes mellitus with hyperglycemia; E11.51 Type 2 diabetes mellitus with diabetic peripheral angiopathy without gangrene; I25.2 Old myocardial infarction; Z79.4 Long term (current) use of insulin; I10 Essential (primary) hypertension; Z96.41 Presence of insulin pump (external) (internal)
CPT/HCPCS: 71010; 71045; 80048; 80053; 81001; 82010; 82947; 82948; 82962; 83036; 83605; 83735; 84100; 84484; 85025; 85610; 85730; 87040; 90760; 93005; 96360; 97163; 99285; J0456; J0696; J1815; J7030; J7050